=== PATIENT | female | born 1960 | race Caucasian/White ===

== ENCOUNTER 2020-04-08 18:35 | Observation (INO) | payer SELFPAY ==
[2020-04-08 18:59] LABS: ABSOLUTE EOSINOPHILS # (AUTO) 0.1 10^3/uL (0.0-0.6); ABSOLUTE MONOCYTES (AUTO) 0.5 10^3/uL (0.1-1.4); ABSOLUTE NEUT (AUTO) 1.8 10^3/uL (1.7-8.2); BASOPHILS % (AUTO) 0.7 % (0-2); EOSINOPHILS % (AUTO) 1.8 % (0-6); HEMATOCRIT 42.1 % (36.0-47.0); HEMOGLOBIN 14.6 g/dL (12.0-15.5); LYMPHOCYTES % (AUTO) 54.7 % (13-45); MEAN CORPUSCULAR HEMOGLOBIN 31.5 pg (27.0-33.4); MEAN CORPUSCULAR HGB CONC 34.7 g/dL (32.0-36.0); MEAN CORPUSCULAR VOLUME 91 fl (80-97); MONOCYTES % (AUTO) 9.6 % (3-13); PLATELET COUNT 205 10^3/uL (150-450); RED BLOOD COUNT 4.64 10^6/uL (3.72-5.28); RED CELL DISTRIBUTION WIDTH 13.2 % (11.5-14.0); SEGMENTED NEUTROPHILS % (AUTO) 33.2 % (42-78); TOTAL CELLS COUNTED % (AUTO) 100 %; WHITE BLOOD COUNT 5.4 10^3/uL (4.0-10.5)
--- NOTE | 2020-04-08 19:03 | ER Document Report ---
ED Cardiac - General Stated Complaint: CHEST PAIN Time Seen by Provider: 04/08/20 18:53 Notes: Patient is a 59-year-old female with past medical history of hypertension who presents the emergency department with chest pain. Her pain started at 1500 this afternoon. 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 Patient states that she had her first angioplasty in 2006. Patient is currently incarcerated and was incarcerated on March 31. She is supposed to be on lisinopril, metoprolol, and norvasc, but she states that since she has been in [facility], she has not received her blood pressure medications. At the [facility] she received 325 aspirin and in route to the emergency department, the patient received nitroglycerin 3 times. Patient states that her pain has improved, but is still there. Describes her pain as a chest tightness in her mid to left chest. Patient states that she is an every day smoker and smokes about half pack a day. About a year and a half ago, she had her last myocardial infarction and she was medically managed. She states that she was in [place] when that happened. TRAVEL OUTSIDE OF THE [place] IN LAST 30 DAYS: No - Related Data Allergies/Adverse Reactions: No Known Allergies Allergy (Verified 03/28/16 21:56) Past Medical History - General Information source: Patient - Social History Smoking Status: Current Every Day Smoker Family History: Reviewed & Not Pertinent - Past Medical History Cardiac Medical History: Reports: Hx Heart Attack, Hx Hypertension Neurological Medical History: Reports: Hx Migraine Past Surgical History: Reports: Hx Cardiac Surgery Review of Systems - Review of Systems Notes: REVIEW OF SYSTEMS: CONSTITUTIONAL : Denies recent illness. Denies recent unintentional weight loss. Denies fever, chills, or sweats. EENT: Denies eye, ear, throat, or mouth pain, discharge, or symptoms. Denies nasal or sinus congestion. CARDIOVASCULAR: See HPI. RESPIRATORY: See HPI. GASTROINTESTINAL: Denies nausea, vomiting, and diarrhea. Denies abdominal pain. Denies constipation. GENITOURINARY: Denies difficulty urinating, burning, blood in urine, urgency or frequency. MUSCULOSKELETAL: Denies neck and back pain. Denies joint pain or swelling. SKIN: Denies rash, itchiness, or lesions HEMATOLOGIC : Denies easy bruising or bleeding. LYMPHATIC: Denies swollen, painful, enlarged glands. NEUROLOGICAL: Denies no numbness or tingling denies weakness. Denies headache. Denies altered mental status. Denies alteration in speech. PSYCHIATRIC: Denies stress, anxiety, alteration in sleep patterns, or depression. All other systems reviewed and negative. Physical Exam - Vital signs Vitals: Resp Pulse Ox 14 96 04/08/20 18:36 04/08/20 18:36 - Notes Notes: PHYSICAL EXAMINATION: GENERAL: Appears well, healthy, well-nourished, no acute distress. HEAD: Normocephalic, atraumatic. EYES: PERRL, conjunctiva normal, all extraocular movements intact, sclera nonicteric ENT: Moist mucous membranes. NECK: Supple, no noticeable swelling, redness, rash. Normal range of motion. LUNGS: Equal breath sounds bilaterally and clear to auscultation. No wheezes rales or rhonchi. CARDIOVASCULAR: S1-S2, sinus bradycardia, regular rhythm. Radial pulses 2+, normal. ABDOMEN: Normoactive bowel sounds. Soft, nontender, no guarding, no rebound tenderness, and no masses palpated. EXTREMITIES: Normal strength and range of motion, no pitting or edema. No cyanosis. NEUROLOGICAL: Moves all extremities upon command. Strength 5/5 in all extremities. PSYCH: Normal mood, normal affect. SKIN: Warm, dry. No rash, lesions, ulcerations noted. Normal skin turgor. Course - Re-evaluation Re-evalutation: 04/08/20 19:44 Differential diagnosis for the patient's chest pain includes ischemic chest pain (STEMI, NSTEMI, or unstable angina), pulmonary embolism, aortic dissection, pericarditis, chest wall pain. Chest x-ray is negative for pneumonia, widened mediastinum, or pneumothorax. I do not suspect aortic dissection due to history, symmetrical pulses, chest x- ray, and vital signs. Patient's hematology is unremarkable. No leukocytosis or anemia noted. And is negative. Urine toxicology is negative. HEART Score: History:1 EK Age:1 Risk Factors: 2 Troponin:0 Total: 4 04/08/20 20:45 Heart score is 4. I spoke with Dr. Arndt, the hospitalist. Patient will be admitted to the telemetry unit under observation. - Vital Signs Vital signs: Temp Pulse Resp BP Pulse Ox 98.5 F 66 18 150/87 H 98 04/09/20 04:13 04/09/20 04:13 04/09/20 04:13 04/09/20 04:13 04/09/20 04:13 - Laboratory Result Diagrams: 04/08/20 18:45 04/08/20 18:45 Laboratory results interpreted by me: 04/08/20 04/08/20 18:45 18:45 Lymph % (Auto) 54.7 H Seg Neutrophils % 33.2 L Sodium 136.0 L AST 43 H ALT 53 H Albumin 3.4 L - EKG Interpretation by Me Additional EKG results interpreted by me: 04/08/20 20:10 Sinus bradycardia. Rate 58. RI 148; QRS 80; QT 452; QTc 445. No ST elevations or depressions noted. The only change from EKG done on 04/13/2016 is that the patient is now bradycardic. Discharge - Discharge Clinical Impression: Chest pain Qualifiers: Chest pain type: unspecified Qualified Code(s): R07.9 - Chest pain, unspecified Condition: Stable Disposition: ADMITTED OBSERVATION Admitting Provider: Hair (Hospitalist) Unit Admitted: Telemetry
[2020-04-08 19:12] LABS: ALBUMIN 3.4 g/dL (3.5-5.0); ALKALINE PHOSPHATASE 57 U/L (38-126); ASPARTATE AMINO TRANSFERASE 43 U/L (14-36); BILIRUBIN,TOTAL 0.3 mg/dL (0.2-1.3); BLOOD UREA NITROGEN 20 mg/dL (7-20); CALCIUM 9.3 mg/dL (8.4-10.2); CHLORIDE 103 mmol/L (98-107); CREATINE KINASE 47 U/L (30-135); GLUCOSE 94 mg/dL (75-110); POTASSIUM 3.8 mmol/L (3.6-5.0); TOTAL PROTEIN 6.6 g/dL (6.3-8.2)
[2020-04-08 19:17] LABS: CARBON DIOXIDE 28 mmol/L (22-30)
[2020-04-08 19:18] LABS: ANION GAP 5 (5-19)
[2020-04-08 19:24] LABS: CREATINE KINASE MB 0.64 ng/mL (<4.55)
[2020-04-08 19:25] LABS: TROPONIN I < 0.012 ng/mL
--- NOTE | 2020-04-08 20:27 | RADIOLOGY REPORT (SQ) ---
EXAM DESCRIPTION: XR CHEST 1 VIEW COMPLETED DATE/TME: 04/08/2020 19:41 CLINICAL HISTORY: 59 years, Female, chest pain COMPARISON: Prior study from 04/13/2016 NUMBER OF VIEWS: One TECHNIQUE: Single frontal view of the chest was obtained portably LIMITATIONS: None. FINDINGS: Cardiac and mediastinal contours are stable. Lungs are clear. No pleural effusion or pneumothorax. IMPRESSION: No acute disease. copyright 2010 [employer]- All Rights Reserved
[2020-04-08] MEDS ORDERED: MAG HYDROX/AL HYDROX/SIMETH SUSP 30 ML UDCUP PO PRN (20:40)
[2020-04-08] MEDS ORDERED: ACETAMINOPHEN 325 MG TABLET PO PRN (20:40)
[2020-04-08] MEDS ORDERED: NITROGLYCERIN 0.4 MG/TAB 25 TAB/BOTTLE SL PRN (20:40)
[2020-04-08 20:54] LABS: URINE AMPHETAMINES SCREEN NEGATIVE; URINE BARBITURATES SCREEN NEGATIVE; URINE BENZODIAZEPINES SCREEN NEGATIVE; URINE COCAINE SCREEN NEGATIVE; URINE MARIJUANA (THC) SCREEN NEGATIVE; URINE METHADONE SCREEN NEGATIVE; URINE PHENCYCLIDINE SCREEN NEGATIVE
[2020-04-08] MEDS ORDERED: HYDRALAZINE HCL INJ/PF 20 MG/1 ML SDV IV ONE (21:19)
--- NOTE | 2020-04-08 21:43 | EKG REPORT ---
SEVERITY:- ABNORMAL ECG - SINUS RHYTHM RAA, CONSIDER BIATRIAL ABNORMALITIES : Confirmed by: Pushpa Roth MD 08-Apr-2020 21:43:15
[2020-04-08] MEDS ORDERED: ATORVASTATIN CALCIUM 80 MG TABLET PO SCH (22:00)
--- NOTE | 2020-04-09 03:41 | PDOC H&P ---
History of Present Illness Admission Date/PCP: 04/08/20 21:00 Patient complains of: Chest pain History of Present Illness: MAGALY PASTOR is a 59 year old female with a past medical history of hypertension, depression and chronic pain and coronary artery disease status post angioplasty x2 and negative Cardiolite stress test 1 year ago at [facility]. She presents in custody of [facility] with complaints of 3 hours of left- sided chest pain which radiates to the back and shoulder not associated with nausea vomiting palpitations or shortness of breath. She admits improvement following treatment with aspirin and nitroglycerin. She is unable to identify exacerbating factors. Her pain is currently 2 out of 5 intensity. Work-up was unremarkable she is referred to the hospitalist for admission. Past Medical History Cardiac Medical History: Reports: Myocardial Infarction - x5, Hypertension Neurological Medical History: Reports: Migraine Psychiatric Medical History: Reports: Depression, Substance Abuse, Tobacco Dependency Past Surgical History Past Surgical History: Reports: Cardiac Catheterization Social History Information Source: Patient Lives with: Other - Incarceration Smoking Status: Current Every Day Smoker Electronic Cigarette use?: No Drugs: Marijuana - Advance Directive Resuscitation Status: Full Code Family History Family History: CAD Parental Family History Reviewed: Yes Children Family History Reviewed: Yes Sibling(s) Family History Reviewed.: Yes Medication/Allergy Allergies/Adverse Reactions: No Known Allergies Allergy (Verified 03/28/16 21:56) Review of Systems Constitutional: ABSENT: chills, fever(s), headache(s), weight gain, weight loss Eyes: ABSENT: visual disturbances Ears: ABSENT: hearing changes Cardiovascular: ABSENT: chest pain, dyspnea on exertion, edema, orthropnea, palpitations Respiratory: ABSENT: cough, hemoptysis Gastrointestinal: ABSENT: abdominal pain, constipation, diarrhea, hematemesis, hematochezia, nausea, vomiting Genitourinary: ABSENT: dysuria, hematuria Musculoskeletal: ABSENT: joint swelling Integumentary: ABSENT: rash, wounds Neurological: ABSENT: abnormal gait, abnormal speech, confusion, dizziness, focal weakness, syncope Psychiatric: ABSENT: anxiety, depression, homidical ideation, suicidal ideation Endocrine: ABSENT: cold intolerance, heat intolerance, polydipsia, polyuria Hematologic/Lymphatic: ABSENT: easy bleeding, easy bruising Physical Exam Vital Signs: Temp Pulse Resp BP Pulse Ox 98.5 F 62 18 135/89 H 99 04/08/20 23:02 04/09/20 02:00 04/08/20 23:02 04/08/20 23:02 04/08/20 23:02 Intake & Output 04/07/20 04/08/20 04/09/20 11:59 11:59 11:59 Weight 54.431 kg General appearance: PRESENT: no acute distress, well-developed, well-nourished Head exam: PRESENT: atraumatic, normocephalic Eye exam: PRESENT: conjunctiva pink, EOMI, PERRLA. ABSENT: scleral icterus Ear exam: PRESENT: normal external ear exam Mouth exam: PRESENT: moist, tongue midline Neck exam: ABSENT: carotid bruit, JVD, lymphadenopathy, thyromegaly Respiratory exam: PRESENT: clear to auscultation mary. ABSENT: rales, rhonchi, wheezes Cardiovascular exam: PRESENT: RRR, other - Reproducible left shoulder pain with palpation to the left scapula. ABSENT: diastolic murmur, rubs, systolic murmur Pulses: PRESENT: normal dorsalis pedis pul Vascular exam: PRESENT: normal capillary refill GI/Abdominal exam: PRESENT: normal bowel sounds, soft. ABSENT: distended, guarding, mass, organolmegaly, rebound, tenderness Rectal exam: PRESENT: deferred Extremities exam: PRESENT: full ROM. ABSENT: calf tenderness, clubbing, pedal edema Neurological exam: PRESENT: alert, awake, oriented to person, oriented to place, oriented to time, oriented to situation, CN II-XII grossly intact. ABSENT: motor sensory deficit Psychiatric exam: PRESENT: appropriate affect, normal mood. ABSENT: homicidal ideation, suicidal ideation Skin exam: PRESENT: dry, intact, warm. ABSENT: cyanosis, rash Results Laboratory Results: 04/08/20 18:45 04/08/20 18:45 04/08/20 04/08/20 04/08/20 18:45 18:45 18:45 WBC 5.4 RBC 4.64 Hgb 14.6 Hct 42.1 MCV 91 MCH 31.5 MCHC 34.7 RDW 13.2 Plt Count 205 Seg Neutrophils % 33.2 L Sodium 136.0 L Potassium 3.8 Chloride 103 Carbon Dioxide 28 Anion Gap 5 BUN 20 Creatinine 0.77 Est GFR ( Amer) > 60 Glucose 94 Calcium 9.3 Total Bilirubin 0.3 AST 43 H Alkaline Phosphatase 57 Total Protein 6.6 Albumin 3.4 L TSH 3.78 04/08/20 04/08/20 04/08/20 18:45 18:45 22:00 Creatine Kinase 47 CK-MB (CK-2) 0.64 Troponin I < 0.012 < 0.012 04/08/20 22:00 Creatine Kinase 46 CK-MB (CK-2) Troponin I Impressions: Chest X-Ray 04/08/20 19:41 IMPRESSION: No acute disease. copyright 2011 [employer]- All Rights Reserved Assessment and Plan - Diagnosis (1) Chest pain Qualifiers: Chest pain type: unspecified Qualified Code(s): R07.9 - Chest pain, unspecified Is this a current diagnosis for this admission?: Yes Plan: Atypical chest pain though the patient's pain is atypical there are multiple risk factors for coronary artery disease and subsequently will observe and evaluation of acute coronary syndrome versus coronary artery disease with anginal equivalents. Cardiac monitoring blood pressure Q6 hours ,TSH, lipid profile, serial cardiac enzymes and cardiac stress test (2) Hypertension Is this a current diagnosis for this admission?: Yes Plan: Hydralazine as needed - Time Time Spent with patient: 25-34 minutes
[2020-04-09 04:51] VITALS: BP 150/87
[2020-04-09 07:02] LABS: CHOLESTEROL 191.17 mg/dL (0-200); TRIGLYCERIDES 147 mg/dL (<150)
[2020-04-09 07:12] LABS: DIRECT LDL 120 mg/dL (<100)
[2020-04-09] MEDS ORDERED: ASPIRIN 81 MG TABLET, ENT COATED PO ONE (08:55)
[2020-04-09] MEDS ORDERED: ASPIRIN 81 MG TABLET, ENT COATED PO SCH (10:00)
--- NOTE | 2020-04-09 11:39 | PDOC DISCHARGE SUMMARY ---
Impression - Admit/DC Date/PCP Admission Date/Primary Care Provider: 04/08/20 21:00 Discharge Date: 04/09/20 - Discharge Diagnosis (1) Chest pain Is this a current diagnosis for this admission?: Yes (2) Hypertension Is this a current diagnosis for this admission?: Yes (3) Heart murmur Is this a current diagnosis for this admission?: Yes - Additional Information Resuscitation Status: Full Code Discharge Diet: Cardiac History of Present Illiness History of Present Illness: According to admitting provider: MAGALY PASTOR is a 59 year old female with a past medical history of hypertension, depression and chronic pain and coronary artery disease status post angioplasty x2 and negative Cardiolite stress test 1 year ago at [facility]. She presents in custody of [facility] with complaints of 3 hours of left-sided chest pain which radiates to the back and shoulder not associated with nausea vomiting palpitations or shortness of breath. She admits improvement following treatment with aspirin and nitroglycerin. She is unable to identify exacerbating factors. Her pain is currently 2 out of 5 intensity. Work-up was unremarkable she is referred to the hospitalist for admission. Hospital Course Hospital Course: Patient was admitted for evaluation of chest pain. Chest x-ray was normal. Blood work was done which was vastly unremarkable. Troponin was measured to be times and were all negative. EKG showed mild evidence of right atrial enlargement but otherwise no evidence of ischemic heart disease. Today, patient states that her chest pain is about a 2/10. On examination she notably has a murmur. Unfortunately, given that today is a weekend and tomorrow is a public holiday, we are unable to do any routine echocardiograms to evaluate her heart murmur until Friday. I have discussed with the Guard who escorted patient from the group home and he has called his department office and confirmed that they will be able to ensure follow-up for patient with a card filer to get an echocardiogram done. Physical Exam Vital Signs: Temp Pulse Resp BP Pulse Ox 98.5 F 62 18 150/87 H 98 04/09/20 04:13 04/09/20 07:00 04/09/20 04:13 04/09/20 04:13 04/09/20 04:13 Intake & Output 04/08/20 04/09/20 04/10/20 06:59 06:59 06:59 Intake Total 560 Balance 560 Weight 61.7 kg General appearance: PRESENT: no acute distress, cooperative Neck exam: ABSENT: JVD Respiratory exam: PRESENT: clear to auscultation mary, unlabored Cardiovascular exam: PRESENT: +S1, +S2, systolic murmur - RUSB. ABSENT: tachycardia Extremities exam: ABSENT: pedal edema, +1 edema, +2 edema Results Laboratory Results: WBC 5.4 10^3/uL (4.0-10.5) 04/08/20 18:45 RBC 4.64 10^6/uL (3.72-5.28) 04/08/20 18:45 Hgb 14.6 g/dL (12.0-15.5) 04/08/20 18:45 Hct 42.1 % (36.0-47.0) 04/08/20 18:45 MCV 91 fl (80-97) 04/08/20 18:45 MCH 31.5 pg (27.0-33.4) 04/08/20 18:45 MCHC 34.7 g/dL (32.0-36.0) 04/08/20 18:45 RDW 13.2 % (11.5-14.0) 04/08/20 18:45 Plt Count 205 10^3/uL (150-450) 04/08/20 18:45 Lymph % (Auto) 54.7 % (13-45) H 04/08/20 18:45 [place] % (Auto) 9.6 % (3-13) 04/08/20 18:45 Eos % (Auto) 1.8 % (0-6) 04/08/20 18:45 Baso % (Auto) 0.7 % (0-2) 04/08/20 18:45 Absolute Neuts (auto) 1.8 10^3/uL (1.7-8.2) 04/08/20 18:45 Absolute Lymphs (auto) 3.0 10^3/uL (0.5-4.7) 04/08/20 18:45 Absolute Monos (auto) 0.5 10^3/uL (0.1-1.4) 04/08/20 18:45 Absolute Eos (auto) 0.1 10^3/uL (0.0-0.6) 04/08/20 18:45 Absolute Basos (auto) 0.0 10^3/uL (0.0-0.2) 04/08/20 18:45 Seg Neutrophils % 33.2 % (42-78) L 04/08/20 18:45 Sodium 136.0 mmol/L (137-145) L 04/08/20 18:45 Potassium 3.8 mmol/L (3.6-5.0) 04/08/20 18:45 Chloride 103 mmol/L (98-107) 04/08/20 18:45 Carbon Dioxide 28 mmol/L (22-30) 04/08/20 18:45 Anion Gap 5 (5-19) 04/08/20 18:45 BUN 20 mg/dL (7-20) 04/08/20 18:45 Creatinine 0.77 mg/dL (0.52-1.25) 04/08/20 18:45 Est GFR ( Amer) > 60 (>60) 04/08/20 18:45 Est GFR (MDRD) Non-Af > 60 (>60) 04/08/20 18:45 Glucose 94 mg/dL (75-110) 04/08/20 18:45 Calcium 9.3 mg/dL (8.4-10.2) 04/08/20 18:45 Total Bilirubin 0.3 mg/dL (0.2-1.3) 04/08/20 18:45 Direct Bilirubin 0.0 mg/dL (0.0-0.4) 04/08/20 18:45 Neonat Total Bilirubin Not Reportable 04/08/20 18:45 Neonat Direct Bilirubin Not Reportable 04/08/20 18:45 Neonat Indirect Bili Not Reportable 04/08/20 18:45 AST 43 U/L (14-36) H 04/08/20 18:45 ALT 53 U/L (<35) H 04/08/20 18:45 Alkaline Phosphatase 57 U/L (38-126) 04/08/20 18:45 Creatine Kinase 46 U/L (30-135) 04/08/20 22:00 CK-MB (CK-2) 0.64 ng/mL (<4.55) 04/08/20 18:45 Troponin I < 0.012 ng/mL 04/09/20 06:01 Total Protein 6.6 g/dL (6.3-8.2) 04/08/20 18:45 Albumin 3.4 g/dL (3.5-5.0) L 04/08/20 18:45 Triglycerides 147 mg/dL (<150) 04/09/20 06:01 Cholesterol 191.17 mg/dL (0-200) 04/09/20 06:01 LDL Cholesterol Direct 120 mg/dL (<100) H 04/09/20 06:01 VLDL Cholesterol 29.0 mg/dL (10-31) 04/09/20 06:01 HDL Cholesterol 45 mg/dL (>40) 04/09/20 06:01 TSH 3.78 uIU/mL (0.47-4.68) 04/08/20 18:45 Urine Opiates Screen NEGATIVE 04/08/20 19:17 Urine Methadone Screen NEGATIVE 04/08/20 19:17 Ur Barbiturates Screen NEGATIVE 04/08/20 19:17 Ur Phencyclidine Scrn NEGATIVE 04/08/20 19:17 Ur Amphetamines Screen NEGATIVE 04/08/20 19:17 U Benzodiazepines Scrn NEGATIVE 04/08/20 19:17 Urine Cocaine Screen NEGATIVE 04/08/20 19:17 U Marijuana (THC) Screen NEGATIVE 04/08/20 19:17 04/08/20 04/08/20 04/09/20 18:45 22:00 06:01 CK-MB (CK-2) 0.64 Troponin I < 0.012 < 0.012 < 0.012 Impressions: Chest X-Ray 04/08/20 19:41 IMPRESSION: No acute disease. copyright 2011 [employer]- All Rights Reserved Plan Time Spent: Less than 30 Minutes Stroke Is this a Stroke Patient?: No Acute Heart Failure - Is this a Heart Failure Patient?: No
== END 2020-04-09 12:16 ==
LOC: ER 18:35 → EH 21:00 → 4S 22:45
PROVIDERS: ADMIT Internal Medicine; ATTEND Internal Medicine
DX: R07.89 Other chest pain (principal); I10 Essential (primary) hypertension; R01.1 Cardiac murmur, unspecified; G89.29 Other chronic pain; I25.10 Atherosclerotic heart disease of native coronary artery without angina pectoris; I25.2 Old myocardial infarction; M25.512 Pain in left shoulder; R00.1 Bradycardia, unspecified; F17.210 Nicotine dependence, cigarettes, uncomplicated; Z82.49 Family history of ischemic heart disease and other diseases of the circulatory system
CPT/HCPCS: 93005; 99285; 96374; 36415 ×2; 82553; 82550; 84443; 85025; 80053; 84484 ×2; 80307; 80061; 71045; 93010; J0360; J3490